=== PATIENT | female | born 1935 | race African-American/Black ===

== ENCOUNTER 2021-04-28 12:58 | Outpatient (RCR) | payer MEDICARE, OTHER, SELFPAY | END 2021-05-02 15:56 | disposition home or self-care (01) | LOC: HO.WCC 12:58 | PROVIDERS: PCP Internal Medicine; Visit Provider Physician Assistant | DX: S81.812A Laceration without foreign body, left lower leg, initial encounter (principal); I87.2 Venous insufficiency (chronic) (peripheral); R60.0 Localized edema; I10 Essential (primary) hypertension; J44.9 Chronic obstructive pulmonary disease, unspecified; F17.210 Nicotine dependence, cigarettes, uncomplicated; Z79.2 Long term (current) use of antibiotics; Z79.899 Other long term (current) drug therapy; Z86.718 Personal history of other venous thrombosis and embolism | CPT/HCPCS: 99212 ==